=== PATIENT | female | born 1985 | race African-American/Black ===

== ENCOUNTER 2017-01-07 12:32 | Emergency (ER) | payer OTHER, MEDICAID ==
[2017-01-07 13:07] LABS: ABSOLUTE EOSINOPHILS # (AUTO) 0.4 10^3/uL (0.0-0.6); ABSOLUTE LYMPHOCYTES (AUTO) 2.2 10^3/uL (0.5-4.7); ABSOLUTE MONOCYTES (AUTO) 0.3 10^3/uL (0.1-1.4); ABSOLUTE NEUT (AUTO) 3.6 10^3/uL (1.7-8.2); BASOPHILS % (AUTO) 0.2 % (0-2); EOSINOPHILS % (AUTO) 5.4 % (0-6); HEMATOCRIT 37.8 % (36.0-47.0); HEMOGLOBIN 13.1 g/dL (12.0-15.5); HGB HCT DIFFERENCE 1.5; LYMPHOCYTES % (AUTO) 33.3 % (13-45); MEAN CORPUSCULAR HEMOGLOBIN 30.1 pg (27.0-33.4); MEAN CORPUSCULAR HGB CONC 34.7 g/dL (32.0-36.0); MEAN CORPUSCULAR VOLUME 87 fl (80-97); MONOCYTES % (AUTO) 5.3 % (3-13); RED BLOOD COUNT 4.36 10^6/uL (3.72-5.28); RED CELL DISTRIBUTION WIDTH 13.7 % (11.5-14.0); SEGMENTED NEUTROPHILS % (AUTO) 55.8 % (42-78); WHITE BLOOD COUNT 6.5 10^3/uL (4.0-10.5)
[2017-01-07 13:23] LABS: ALANINE AMINOTRANSFERASE 23 U/L (9-52); ALBUMIN 4.4 g/dL (3.5-5.0); ALKALINE PHOSPHATASE 66 U/L (38-126); ANION GAP 9 (5-19); ASPARTATE AMINO TRANSFERASE 22 U/L (14-36); BILIRUBIN,DIRECT 0.4 mg/dL (0.0-0.4); BILIRUBIN,TOTAL 1.3 mg/dL (0.2-1.3); BLOOD UREA NITROGEN 8 mg/dL (7-20); CALCIUM 10.1 mg/dL (8.4-10.2); CARBON DIOXIDE 27 mmol/L (22-30); CHLORIDE 102 mmol/L (98-107); CREATININE RESULT 0.69 mg/dL (0.52-1.25); GLUCOSE 107 mg/dL (75-110); POTASSIUM 3.7 mmol/L (3.6-5.0); SODIUM 138.1 mmol/L (137-145)
--- NOTE | 2017-01-07 14:36 | ER Document Report ---
ED General - General Chief Complaint: Abdominal Cramping Stated Complaint: STOMACH PAIN Time Seen by Provider: 01/07/17 12:47 TRAVEL OUTSIDE OF THE [place] IN LAST 30 DAYS: No - HPI Patient complains to provider of: abdominal cramping and vaginal spotting Notes: Patient's coming in for abdominal cramping vaginal spotting. States last menstrual cycle was in the middle November. Patient is unaware of her status at this time. Patient denies any other medical problems denies any abdominal surgeries. Denies any nausea or vomiting. - Related Data Allergies/Adverse Reactions: No Known Allergies Allergy (Verified 01/07/17 12:44) Past Medical History - Social History Smoking Status: Never Smoker Chew tobacco use (# tins/day): No Frequency of alcohol use: None Drug Abuse: None Family History: COPD, DM, Hyperlipidemia, Hypertension Renal/ Medical History: Denies: Hx Peritoneal Dialysis Musculoskeltal Medical History: Reports Hx Musculoskeletal Trauma Surgical Hx: Negative - Immunizations Hx Diphtheria, Pertussis, Tetanus Vaccination: Yes Review of Systems - Review of Systems Constitutional: No symptoms reported EENT: No symptoms reported Cardiovascular: No symptoms reported Respiratory: No symptoms reported Gastrointestinal: Abdominal pain - Cramping and vaginal spotting Genitourinary: No symptoms reported Female Genitourinary: No symptoms reported Musculoskeletal: No symptoms reported Skin: No symptoms reported Hematologic/Lymphatic: No symptoms reported Neurological/Psychological: No symptoms reported -: Yes All other systems reviewed and negative Physical Exam - Vital signs Vitals: Temp Pulse Resp BP Pulse Ox 98.1 F 92 14 128/68 H 100 01/07/17 12:33 01/07/17 12:33 01/07/17 12:33 01/07/17 12:33 01/07/17 12:33 Interpretation: Normal - General General appearance: Appears well, Alert - HEENT Head: Normocephalic, Atraumatic Eyes: Normal Pupils: PERRL - Respiratory Respiratory status: No respiratory distress Chest status: Nontender Breath sounds: Normal Chest palpation: Normal - Cardiovascular Rhythm: Regular Heart sounds: Normal auscultation Murmur: No - Abdominal Inspection: Normal Distension: No distension Bowel sounds: Normal Tenderness: Nontender Organomegaly: No organomegaly - Back Back: Normal, Nontender - Extremities General upper extremity: Normal inspection, Nontender, Normal color, Normal ROM , Normal temperature General lower extremity: Normal inspection, Nontender, Normal color, Normal ROM , Normal temperature, Normal weight bearing. No: Jackson's sign - Neurological Neuro grossly intact: Yes Cognition: Normal Orientation: AAOx4 [place] Coma Scale Eye Opening: Spontaneous [place] Coma Scale Verbal: Oriented [place] Coma Scale Motor: Obeys Commands Napoleon Coma Scale Total: 15 Speech: Normal Motor strength normal: LUE, RUE, LLE, RLE Sensory: Normal - Psychological Associated symptoms: Normal affect, Normal mood - Skin Skin Temperature: Warm Skin Moisture: Dry Skin Color: Normal Course - Re-evaluation Re-evalutation: 01/07/17 14:34 Patient coming in for vaginal spotting abdominal cramping test was positive. A quantitative pretty test ultrasound was ordered due to spotting. Quantitative shows less than 200. More likely ultrasound will be negative. Patient will be given threatened miscarriage instructions and request to return in 48 hours for repeat beta hCG testing. - Vital Signs Vital signs: Temp Pulse Resp BP Pulse Ox 98.2 F 94 16 126/70 H 100 01/07/17 15:43 01/07/17 15:43 01/07/17 15:43 01/07/17 15:43 01/07/17 15:43 - Laboratory Result Diagrams: 01/07/17 12:54 01/07/17 12:54 Laboratory results interpreted by me: 01/07/17 01/07/17 12:54 12:54 Serum HCG, Qual POSITIVE H Beta HCG, Quant 141.72 H Discharge - Discharge Clinical Impression: Vaginal bleeding in patient at less than 20 weeks gestation Disposition: HOME, SELF-CARE Instructions: ([facility]), Threatened Miscarriage ([facility]), Ectopic Precaution ([facility]) Additional Instructions: Since we cannot see the on the ultrasound, you must return in 48 hours to have your bhcg blood level repeated. Go to the lab, have your blood drawn, wait a few hours and you can call the ER for your results. We should see this number double for a healthy No sex until cleared to do so return right away with vaginal bleeding or severe pain You should continue to drink plenty of water and consider taking a solution such as Pedialyte if your having difficulty eating food.~ Please return if you become unable to drink any fluids for more than 12 hours, urinate less than twice a day, pass out, or have any other symptoms that are concerning to you. ~ For nausea and vomiting during I recomment: Start with 10-12.5 mg of pyridoxine (vitamin B6) three times a day for 2 days. If not fully effective, Increase to 12.5 mg of pyridoxine four times a day for 2 days. If not fully effective, Increase to 25 mg of pyridoxine three times a day for 2 days. If not fully effective, Continue 25 mg pyridoxine 3 times a day, and add 12.5 mg of doxylamine before bedtime each day for 2 days. If not fully effective, Continue 25 mg pyridoxine 3 times a day, and take 12.5 mg of doxylamine twice a day. If not fully effective, Continue 25 mg pyridoxine 3 times a day, and take 12.5 mg of doxylamine three times a day. If not fully effective, Continue 25 mg pyridoxine 3 times a day, and 12.5 mg of doxylamine 3 times a day , while adding Emetrol, one to two tablespoons (15-30 cc) taken once or twice a day as needed. (Emetrol is an [id number] mixture of sugar syrups and phosphoric acid [phosphorylated carbohydrate solution]) that acts by soothing the actual wall of the gastrointestinal tract). If not fully effective, Consult with your doctor. Prescriptions: Pnv with Ca,No.72/Iron/FA [ Plus Tablet] 1 each PO DAILY #30 tablet Forms: Follow-Up Outpatient Testing
[2017-01-07 15:59] VITALS: BP 126/70
== END 2017-01-07 15:48 | disposition home or self-care (01) ==
LOC: ER 12:32
DX: O26.851 Spotting complicating pregnancy, first trimester (principal); O26.891 Other specified pregnancy related conditions, first trimester; R10.9 Unspecified abdominal pain; Z3A.01 Less than 8 weeks gestation of pregnancy
CPT/HCPCS: 36415; 76817; 80053; 83690; 84702; 84703; 85025; 86900; 86901; 93976; 99284

== ENCOUNTER → 2017-01-09 | Outpatient (CLI) | payer OTHER, MEDICAID | LOC: LAB 09:45 | PROVIDERS: ATTEND Emergency Medicine | DX: O46.90 Antepartum hemorrhage, unspecified, unspecified trimester (principal) | CPT/HCPCS: 36415; 84702 ==

== ENCOUNTER 2017-01-15 17:29 | Day surgery (SDC) | payer OTHER, MEDICAID ==
--- NOTE | 2017-01-15 20:31 | ER Document Report ---
ED Medical Screen (RME) - General Chief Complaint: Abdominal pain, vaginal bleeding Stated Complaint: ABDOMINAL CRAMPING,NAUSEA,VAGINAL BLEEDING Time Seen by Provider: 01/15/17 20:28 Notes: Patient is a 31-year-old female, at 5-6 weeks gestation by last menstrual period that comes emergency department for chief complaint of abdominal cramping and yesterday started vaginal bleeding "like a period". Denies clots, denies current pain, denies dizziness. TRAVEL OUTSIDE OF THE [place] IN LAST 30 DAYS: No - Related Data Allergies/Adverse Reactions: No Known Allergies Allergy (Verified 01/07/17 12:44) Past Medical History Renal/ Medical History: Denies: Hx Peritoneal Dialysis Musculoskeltal Medical History: Reports Hx Musculoskeletal Trauma - Immunizations Hx Diphtheria, Pertussis, Tetanus Vaccination: Yes Physical Exam - Vital signs Vitals: Temp Pulse Resp BP Pulse Ox 98.5 F 95 18 120/52 L 100 01/15/17 17:41 01/15/17 17:41 01/15/17 17:41 01/15/17 17:41 01/15/17 17:41 - General General appearance: Appears well In distress: None - Abdominal Inspection: Normal Tenderness: Nontender Course - Vital Signs Vital signs: Temp Pulse Resp BP Pulse Ox 98.5 F 95 18 120/52 L 100 01/15/17 17:41 01/15/17 17:41 01/15/17 17:41 01/15/17 17:41 01/15/17 17:41
[2017-01-15 21:13] LABS: ABSOLUTE EOSINOPHILS # (AUTO) 0.3 10^3/uL (0.0-0.6); ABSOLUTE LYMPHOCYTES (AUTO) 1.7 10^3/uL (0.5-4.7); ABSOLUTE MONOCYTES (AUTO) 0.5 10^3/uL (0.1-1.4); ABSOLUTE NEUT (AUTO) 2.6 10^3/uL (1.7-8.2); BASOPHILS % (AUTO) 0.3 % (0-2); EOSINOPHILS % (AUTO) 5.9 % (0-6); HEMATOCRIT 38.7 % (36.0-47.0); HEMOGLOBIN 13.3 g/dL (12.0-15.5); HGB HCT DIFFERENCE 1.2; LYMPHOCYTES % (AUTO) 33.5 % (13-45); MEAN CORPUSCULAR HEMOGLOBIN 30.3 pg (27.0-33.4); MEAN CORPUSCULAR HGB CONC 34.3 g/dL (32.0-36.0); MEAN CORPUSCULAR VOLUME 88 fl (80-97); MONOCYTES % (AUTO) 10.2 % (3-13); RED BLOOD COUNT 4.38 10^6/uL (3.72-5.28); RED CELL DISTRIBUTION WIDTH 13.3 % (11.5-14.0); SEGMENTED NEUTROPHILS % (AUTO) 50.1 % (42-78); WHITE BLOOD COUNT 5.2 10^3/uL (4.0-10.5)
[2017-01-15 21:16] LABS: APPEARANCE,URINE SLIGHTLY-CLOUDY; BILIRUBIN,URINE NEGATIVE (NEGATIVE); GLUCOSE, URINE NEGATIVE (NEGATIVE); KETONES,URINE TRACE mg/dL (NEGATIVE); LEUKOCYTE ESTERASE,URINE NEGATIVE (NEGATIVE); NITRITE,URINE NEGATIVE (NEGATIVE); PROTEIN,URINE NEGATIVE (NEGATIVE); URINE SPECIFIC GRAVITY 1.026
--- NOTE | 2017-01-15 22:49 | RADIOLOGY REPORT (SQ) ---
EXAM DESCRIPTION: U/S OB TRANSVAG W/DOPPLER COMPLETED DATE/TIME: 01/15/2017 10:27 pm REASON FOR STUDY: +HCG, cramping, bleeding COMPARISON: None. TECHNIQUE: Transvaginal static and realtime grayscale images acquired of the pelvis. Additional olga lidia cted spectral and color Doppler images recorded. All images stored on PACs. bHC,800 LIMITATIONS: None. FINDINGS: UTERUS: No masses. No anomalies. CERVICAL LENGTH: 3 cm Closed. RIGHT ADNEXA: Normal ovary with normal vascular flow. No adnexal free fluid. No adnexal masses. LEFT ADNEXA: Normal ovary with normal vascular flow. No adnexal free fluid. Gestational sac with yolk sac in the left adnexa, likely tubal ectopic , approximately 5 wee ks 2 days EGA. FREE FLUID: Trace endometrial fluid. OTHER: No other significant finding. IMPRESSION: Gestational sac with yolk sac in the left adnexa, likely tubal ectopic , approx imately 5 weeks 2 days EGA. These results were called to the emergency room physician at 2240 hours. Results were confirmed and read back. Trimester of : First - 0 to 13 weeks. TECHNICAL DOCUMENTATION: JOB ID: [id number] [employer]- All Rights Reserved
[2017-01-15] MEDS ORDERED: NORMAL SALINE 1000 ML 1,000 ML IV ONE (23:23)
--- NOTE | 2017-01-15 23:24 | ER Document Report ---
ED GI/ - General Chief Complaint: Abdominal pain, vaginal bleeding Stated Complaint: ABDOMINAL CRAMPING,NAUSEA,VAGINAL BLEEDING Time Seen by Provider: 01/15/17 20:28 Notes: Patient is a 31-year-old female, at 5-6 weeks gestation by last menstrual period that comes emergency department for chief complaint of abdominal cramping and yesterday started vaginal bleeding "like a period". Cramping started almost 1 week ago and has worsened. Pain worse on the left side. Denies clots, denies current pain, denies dizziness. TRAVEL OUTSIDE OF THE [place] IN LAST 30 DAYS: No - Related Data Allergies/Adverse Reactions: No Known Allergies Allergy (Verified 01/07/17 12:44) Past Medical History - General Information source: Patient - Social History Smoking Status: Never Smoker Frequency of alcohol use: None Drug Abuse: None Lives with: Family Family History: COPD, DM, Hyperlipidemia, Hypertension Renal/ Medical History: Denies: Hx Peritoneal Dialysis Musculoskeltal Medical History: Reports Hx Musculoskeletal Trauma Surgical Hx: Negative - Immunizations Hx Diphtheria, Pertussis, Tetanus Vaccination: Yes Review of Systems - Review of Systems Constitutional: No symptoms reported EENT: No symptoms reported Cardiovascular: No symptoms reported Respiratory: No symptoms reported Gastrointestinal: See HPI Genitourinary: See HPI Female Genitourinary: See HPI Musculoskeletal: No symptoms reported Skin: No symptoms reported Hematologic/Lymphatic: No symptoms reported Neurological/Psychological: No symptoms reported Physical Exam - Vital signs Vitals: Temp Pulse Resp BP Pulse Ox 98.5 F 95 18 120/52 L 100 01/15/17 17:41 01/15/17 17:41 01/15/17 17:41 01/15/17 17:41 01/15/17 17:41 Interpretation: Normal - General General appearance: Appears well, Alert In distress: None - patient does not appear to be in distress - HEENT Head: Normocephalic, Atraumatic Eyes: Normal Pupils: PERRL - Respiratory Respiratory status: No respiratory distress Chest status: Nontender Breath sounds: Normal. No: Decreased air movement, Wheezing Chest palpation: Normal - Cardiovascular Rhythm: Regular. No: Tachycardia Heart sounds: Normal auscultation, S1 appreciated, S2 appreciated Murmur: No - Abdominal Inspection: Normal Distension: No distension Bowel sounds: Normal Tenderness: Tender - tender with some guarding in the left lower abdomen/pelvis , otherwise benign abdomen Organomegaly: No organomegaly - Back Back: Normal, Nontender. No: Tender, CVA tenderness - Extremities General upper extremity: Normal inspection, Nontender, Normal ROM, Normal strength General lower extremity: Normal inspection, Nontender, Normal ROM, Normal strength - Neurological Neuro grossly intact: Yes Cognition: Normal Orientation: AAOx4 [place] Coma Scale Eye Opening: Spontaneous Michelle Coma Scale Verbal: Oriented [place] Coma Scale Motor: Obeys Commands [place] Coma Scale Total: 15 Speech: Normal Motor strength normal: LUE, RUE, LLE, RLE Sensory: Normal - Psychological Associated symptoms: Normal affect, Normal mood - Skin Skin Temperature: Warm Skin Moisture: Dry Skin Color: Normal Course - Re-evaluation Re-evalutation: CBC is unremarkable, urinalysis unremarkable, hCG is only very slightly elevated and potentially concerning. Dr. Cosby informs me that radiologist called and had a report of a left- sided suspected ectopic tubal . Report reviewed. 01/15/17 23:24 Spoke with LUIS CARLOS Amaro national account manager, he states he will see the patient. Saline lock placed, IV fluids given. Patient n.p.o. Patient will be taken to surgery. Patient stating understanding and agreement. - Vital Signs Vital signs: Temp Pulse Resp BP Pulse Ox 97.5 F 70 16 121/68 100 01/16/17 02:27 01/16/17 02:27 01/16/17 02:27 01/16/17 02:27 01/16/17 02:27 - Laboratory Result Diagrams: 01/15/17 20:30 Laboratory results interpreted by me: 01/15/17 01/15/17 20:30 20:35 Beta HCG, Quant 1872.30 H Urine Ketones TRACE H Urine Blood MODERATE H Urine Urobilinogen 4.0 H Discharge - Discharge Clinical Impression: Pelvic pain, Vaginal bleeding Ectopic Qualifiers: Location of ectopic : tubal Intrauterine status: without intrauterine Qualified Code(s): O00.10 - Tubal without intrauterine Condition: Stable Disposition: ADMITTED OBSERVATION Admitting Provider: [facility] Health Unit Admitted: Surgical Floor
[2017-01-15] MEDS ORDERED: RINGERS SOLUTION,LACTATED 1,000 ML IV PRN (23:34)
[2017-01-16] MEDS ORDERED: METOCLOPRAMIDE HCL INJ/PF 10 MG/2 ML SDV ONE (00:33)
[2017-01-16] MEDS ORDERED: FAMOTIDINE INJ/PF 20 MG/2 ML SDV IV ONE (00:34)
[2017-01-16] MEDS ORDERED: CITRIC ACID/SODIUM CITRATE ORAL SOLN 15 ML UDCUP ONE (00:34)
[2017-01-16] MEDS ORDERED: FENTANYL CITRATE INJ/PF 100 MCG/2 ML AMPUL ONE ×2 (00:45)
[2017-01-16] MEDS ORDERED: MIDAZOLAM 2 MG/2 ML INJ ONE (00:45)
[2017-01-16] MEDS ORDERED: HYDROMORPHONE HCL INJ/PF 2 MG/ML AMPULE ONE (00:45)
[2017-01-16] MEDS ORDERED: ONDANSETRON HCL INJ/PF 4 MG/2 ML SDV ONE (00:45)
[2017-01-16] MEDS ORDERED: PROPOFOL INJ 200 MG/20 ML VIAL IV ONE (00:45)
[2017-01-16] MEDS ORDERED: DEXAMETHASONE SOD PHOSPHATE INJ 4 MG/1 ML VIAL ONE (00:45)
[2017-01-16] MEDS ORDERED: IBUPROFEN INJ 800 MG/8 ML VIAL IV ONE (00:46)
[2017-01-16] MEDS ORDERED: ACETAMINOPHEN 100 ML IV ONE ×2 (02:10→03:15)
[2017-01-16 02:48] VITALS: BP 121/68
[2017-01-16] MEDS ORDERED: ROCURONIUM BROMIDE INJ 50 MG/5 ML VIAL IV ONE (07:50)
[2017-01-16] MEDS ORDERED: SUCCINYLCHOLINE CHLORIDE INJ 200 MG/10 ML VIAL ONE (07:50)
[2017-01-16] MEDS ORDERED: NEOSTIGMINE METHYLSULFATE 10 MG/10 ML VIAL ONE (07:50)
[2017-01-16] MEDS ORDERED: GLYCOPYRROLATE INJ 0.4 MG/2 ML VIAL ONE (07:50)
--- NOTE | 2017-02-27 11:59 | DISCHARGE SUMMARY E ---
Discharge Summary NAME: ОЛЕГ HYDE : 1985 AGE: 31Y ADMITTED: 01/15/2017 DISCHARGED: 01/16/2017 REASON FOR ADMISSION: Left ectopic . FINAL DIAGNOSIS REQUIRING ADMISSION: Left ectopic . HISTORY AND PHYSICAL: See history and physical from January 15, 2017, for full details. HOSPITAL COURSE: The patient is admitted through the emergency room for her left ectopic . She goes to the operating room for a left salpingectomy. It is an uncomplicated procedure. See operative note for full details. She is transferred to the women's surgical floor for her outpatient surgical care. Approximately 2 hours after the surgery, she is meeting all of the outpatient surgical goals in order to be discharged home; therefore, she is discharged home. DISCHARGE INSTRUCTIONS: Discharge the patient home. DIET: Regular. LEVEL OF ACTIVITY: Pelvic rest x2 weeks; no heavy lifting x6 weeks. FOLLOWUP INTERVAL: One week with Dr. Costa. SPECIAL INSTRUCTIONS: The patient is instructed to call MD if temperature greater than 100.5, heavy vaginal bleeding or signs and symptoms of wound infection. MEDICATIONS ON DISCHARGE: Percocet and Motrin. DICTATING PHYSICIAN: Niles Costa DO [id number] PHY#: [id number] ID: [id number] JOB#: [id number] ACCT: [id number] cc:Niles Costa D.O. >
== END 2017-01-16 03:52 | disposition home or self-care (01) ==
LOC: ER 17:29 → UNDOADMOB 01-16 00:04 → EH 01-16 00:04 → OROUT 01-16 01:45 → ER 01-16 01:45 → EH 01-16 02:31 → 2N 01-16 02:31 → UNDODISOB 01-16 03:52 → OROUT 01-16 03:52
PROVIDERS: ATTEND Obstetrics & Gynecology
PROC: 0UT64ZZ Resection of Left Fallopian Tube, Percutaneous Endoscopic Approach (ICD-10-PCS; 2017-01-16)
PROC: 10T24ZZ Resection of Products of Conception, Ectopic, Percutaneous Endoscopic Approach (ICD-10-PCS; principal; 2017-01-16 01:10)
DX: O00.10 Tubal pregnancy without intrauterine pregnancy (principal)
CPT/HCPCS: 59151; 99285; 86900; 86901; 36415; 84702; 85025; 81001; 88305 ×2; 76817; 93976; J2250; J3490 ×2; J1100; J3010; J2765; J0330; J2405; J7120; J2704; S0028; J0131; J1741; 840; J1170

== ENCOUNTER 2017-11-07 08:15 | Emergency (ER) | payer MEDICAID ==
[2017-11-07 09:35] LABS: APPEARANCE,URINE CLOUDY; BILIRUBIN,URINE NEGATIVE (NEGATIVE); COLOR,URINE YELLOW; GLUCOSE, URINE NEGATIVE (NEGATIVE); KETONES,URINE NEGATIVE (NEGATIVE); LEUKOCYTE ESTERASE,URINE LARGE (NEGATIVE); NITRITE,URINE NEGATIVE (NEGATIVE); PROTEIN,URINE 30 mg/dL (NEGATIVE); URINE SPECIFIC GRAVITY 1.027; UROBILINOGEN,URINE NEGATIVE mg/dL (<2.0)
--- NOTE | 2017-11-07 11:16 | RADIOLOGY REPORT (SQ) ---
EXAM DESCRIPTION: U/S OB TRANSVAGINAL W/O DOP COMPLETED DATE/TIME: 11/07/2017 11:05 am REASON FOR STUDY: +, Right pelvic pain, spotting COMPARISON: None. TECHNIQUE: Transvaginal static and realtime grayscale images acquired of the pelvis. Additional olga lidia cted spectral and color Doppler images recorded. All images stored on PACs. bHCG: Not available. LIMITATIONS: None. FINDINGS: There is an early gestational sac measuring 9 mm suggesting a gestational 5 weeks 5 days. The pole is not evident. There is no heart motion. A yolk sac is present. UTERUS: 10.5 x 5.5 x 5.7 cm. No masses. No anomalies. CERVICAL LENGTH: 3.4 cm. Closed. RIGHT ADNEXA: Normal ovary with normal vascular flow. 3.6 x 2.6 x 2.3 cm. There is a 1.7 x 1.7 x 1. 1 cm cyst. No adnexal free fluid. No adnexal masses. LEFT ADNEXA: Normal ovary with normal vascular flow. 2.6 x 2.3 x 1.2 cm. No adnexal free fluid. No adnexal masses. FREE FLUID: None. OTHER: There is a small subchorionic bleed measuring 0.8 x 1.2 x 0.7 cm. IMPRESSION: There is a gestational sac suggesting early gestation of 5 weeks 5 days. There is a sma ll subchorionic bleed. Follow-up as clinically indicated. Trimester of : First - 0 to 13 weeks. TECHNICAL DOCUMENTATION: JOB ID: [id number] [employer]- All Rights Reserved Reading location - IP/workstation name: [email or web address]
--- NOTE | 2017-11-07 11:25 | ER Document Report ---
ED General - General Chief Complaint: Lower Abdominal Pain Stated Complaint: VAGINAL SPOTTING/CRAMPING Time Seen by Provider: 11/07/17 09:16 Mode of Arrival: Ambulatory Information source: Patient Notes: 32-year-old female 5 para 4 1 previous ectopic presents with complaints of vaginal bleeding during . Patient notes she is approximate 5 weeks . She denies any fevers or chills, blood type is B + and she has never received RhoGam in the past TRAVEL OUTSIDE OF THE [place] IN LAST 30 DAYS: No - HPI Onset: Just prior to arrival Onset/Duration: Sudden Quality of pain: No pain Severity: Mild Pain Level: Denies Associated symptoms: Other Exacerbated by: Denies Relieved by: Denies Similar symptoms previously: Yes Recently seen / treated by doctor: Yes - Related Data Allergies/Adverse Reactions: No Known Allergies Allergy (Verified 01/07/17 12:44) Past Medical History - Social History Smoking Status: Never Smoker Cigarette use (# per day): No Chew tobacco use (# tins/day): No Smoking Education Provided: No Frequency of alcohol use: None Drug Abuse: None Family History: COPD, DM, Hyperlipidemia, Hypertension Patient has suicidal ideation: No Patient has homicidal ideation: No - Past Medical History Cardiac Medical History: Denies: Hx Congestive Heart Failure, Hx Heart Attack, Hx Hypertension Pulmonary Medical History: Denies: Hx Asthma, Hx Bronchitis, Hx COPD, Hx Pneumonia, Hx Tuberculosis Neurological Medical History: Denies: Hx Seizures Renal/ Medical History: Denies: Hx End Stage Renal Disease, Hx Kidney Stones, Hx Peritoneal Dialysis GI Medical History: Denies: Hx Cirrhosis, Hx Gastroesophageal Reflux Disease, Hx Ulcer Musculoskeltal Medical History: Denies Hx Arthritis, Denies Hx Multiple Sclerosis, Reports Hx Musculoskeletal Trauma Psychiatric Medical History: Denies: Hx Bipolar Disorder, Hx Depression, Hx Schizophrenia Past Surgical History: Reports: Hx Gynecologic Surgery - left tubal removal - Immunizations Hx Diphtheria, Pertussis, Tetanus Vaccination: Yes Review of Systems - Review of Systems Notes: REVIEW OF SYSTEMS: CONSTITUTIONAL : Denies fever, chills, or sweats. Denies recent illness. EENT: Denies eye, ear, throat, or mouth pain or symptoms. Denies nasal or sinus congestion or discharge. Denies throat, tongue, or mouth swelling or difficulty swallowing. CARDIOVASCULAR: Denies chest pain. Denies palpitations or racing or irregular heart beat. Denies ankle edema. RESPIRATORY: Denies cough, cold, or chest congestion. Denies shortness of breath, difficulty breathing, or wheezing. GASTROINTESTINAL: Denies abdominal pain or distention. Denies nausea, vomiting , or diarrhea. Denies blood in vomitus, stools, or per rectum. Denies black, tarry stools. Denies constipation. GENITOURINARY: Denies difficulty urinating, painful urination, burning, frequency, blood in urine, or discharge. FEMALE GENITOURINARY: [facility]. MUSCULOSKELETAL: Denies back or neck pain or stiffness. Denies joint pain or swelling. SKIN: Denies rash, lesions or sores. HEMATOLOGIC : Denies easy bruising or bleeding. LYMPHATIC: Denies swollen, enlarged glands. NEUROLOGICAL: Denies confusion or altered mental status. Denies passing out or loss of consciousness. Denies dizziness or lightheadedness. Denies headache. Denies weakness or paralysis or loss of use of either side. Denies problems with gait or speech. Denies sensory loss, numbness, or tingling. Denies seizures. PSYCHIATRIC: Denies anxiety or stress. Denies depression, suicidal ideation, or homicidal ideation. ALL OTHER SYSTEMS REVIEWED AND NEGATIVE. PHYSICAL EXAMINATION: GENERAL: Well-appearing, well-nourished and in no acute distress. HEAD: Atraumatic, normocephalic. EYES: Pupils equal round and reactive to light, extraocular movements intact, conjunctiva are normal. ENT: Nares patent, oropharynx clear without exudates. Moist mucous membranes. NECK: Normal range of motion, supple without lymphadenopathy LUNGS: Breath sounds clear to auscultation bilaterally and equal. No wheezes rales or rhonchi. HEART: Regular rate and rhythm without murmurs ABDOMEN: Soft, nontender, nondistended abdomen. No guarding, no rebound. No masses appreciated. Female : deferred Musculoskeletal: Normal range of motion, no pitting or edema. No cyanosis. NEUROLOGICAL: Cranial nerves grossly intact. Normal speech, normal gait. Normal sensory, motor exams PSYCH: Normal mood, normal affect. SKIN: Warm, Dry, normal turgor, no rashes or lesions noted. Dictation was performed using [employer] recognition software Course - Re-evaluation Re-evalutation: 11/07/17 11:25 Patient was evaluated and is stable, physical examination was quite benign patient is eating in the room with no difficulty, patient's ultrasound is consistent with a 5 week 5 day , report was given to the patient, she will be given follow-up with women's health as well as the health department patient states she understands will return if there are any other concerns Discussions regarding threatened miscarriage performed After performing a Medical Screening Examination, I estimate there is LOW risk for ACUTE APPENDICITIS, BOWEL OBSTRUCTION, ACUTE CHOLECYSTITIS, PERFORATED DIVERTICULITIS, INCARCERATED HERNIA, PANCREATITIS, PELVIC INFLAMMATORY DISEASE, PERFORATED ULCER, ECTOPIC , or TUBO-OVARIAN ABSCESS, thus I consider the discharge disposition reasonable. Also, there is no evidence or peritonitis , sepsis, or toxicity. I have reevaluated this patient multiple times and no significant life threatening changes are noted. The patient and I have discussed the diagnosis and risks, and we agree with discharging home with close follow-up with the understanding that symptoms and presentations can change. We also discussed returning to the Emergency Department immediately if new or worsening symptoms occur. We have discussed the symptoms which are most concerning (e.g., bloody stool, fever, changing or worsening pain, vomiting) that necessitate immediate return. - Laboratory Laboratory results interpreted by me: 11/07/17 11/07/17 08:50 09:48 Beta HCG, Quant 00608.00 H Urine Protein 30 H Urine Blood SMALL H Ur Leukocyte Esterase LARGE H Urine HCG, Qual POSITIVE H - Diagnostic Test Radiology reviewed: Image reviewed - no acute abnormality except for small subchorionic bleed, 5 week 5 day , report given to patient, Reports reviewed Discharge - Discharge Clinical Impression: Threatened miscarriage in early Condition: Stable Disposition: HOME, SELF-CARE Instructions: Threatened Miscarriage ([facility]) Additional Instructions: Follow up with your physician tomorrow for further care or return to the ED IMMEDIATELY if symptoms worsen or new concerns occur. If you cannot afford to follow up with your primary care physician a list of low cost clinics have been provided at the end of your discharge papers as well.
[2017-11-07 11:42] VITALS: BP 120/61
== END 2017-11-07 11:42 | disposition home or self-care (01) ==
LOC: ER 08:15
DX: O20.0 Threatened abortion (principal); Z3A.01 Less than 8 weeks gestation of pregnancy
CPT/HCPCS: 36415; 76817; 81001; 81025; 84702; 99284

== ENCOUNTER 2018-06-02 09:49 | Outpatient (CLI) | payer MEDICAID ==
[2018-06-02 10:54] LABS: APPEARANCE,URINE SLIGHTLY-CLOUDY; BILIRUBIN,URINE NEGATIVE (NEGATIVE); COLOR,URINE YELLOW; GLUCOSE, URINE NEGATIVE (NEGATIVE); KETONES,URINE NEGATIVE (NEGATIVE); LEUKOCYTE ESTERASE,URINE LARGE (NEGATIVE); NITRITE,URINE NEGATIVE (NEGATIVE); PROTEIN,URINE 30 mg/dL (NEGATIVE); URINE SPECIFIC GRAVITY 1.016; UROBILINOGEN,URINE NEGATIVE mg/dL (<2.0)
[2018-06-02 11:06] LABS: URINE AMPHETAMINES SCREEN NEGATIVE; URINE BARBITURATES SCREEN NEGATIVE; URINE BENZODIAZEPINES SCREEN NEGATIVE; URINE COCAINE SCREEN NEGATIVE; URINE METHADONE SCREEN NEGATIVE; URINE PHENCYCLIDINE SCREEN NEGATIVE
[2018-06-02 11:12] LABS: URINE MARIJUANA (THC) SCREEN UNCONFIRMED POSITIVE
--- NOTE | 2018-06-02 12:06 | Non Stress Test Report ---
Non Stress Test Datetime Report Generated by CPN: 06/02/2018 12:05 DEMOGRAPHIC EGA NST: 35.1 INDICATION Indication for Study: Ordered by Provider MONITORING Monitor Explained: Monitor Explained; Test Explained; Patient Verbalized Understanding Time on Monitor: 06/02/2018 10:20 Time off Monitor: 06/02/2018 11:25 Time off Monitor: 06/02/2018 11:25 NST Duration: 65 NST INTERVENTIONS NST Interventions: PO Hydration; Reposition Patient Physician Notified NST: Dr. Fercho BABY A: [id number] BABY A Movement : Present Contraction Frequency : irregular FHR Baseline : 125 FHR Baseline : 135 Accelerations : 15X15 Decelerations : None Variability : Moderate 6-25bpm NST Review: Meets Criteria for Reactive NST NST Review and Verified By : Kai Macdonald RN NST Results: Reactive NST REPORT Report Trigger: Send Report
== END 2018-06-02 11:46 | disposition home or self-care (01) ==
LOC: LC 09:49
PROVIDERS: ATTEND Obstetrics & Gynecology
PROC: 4A1HXCZ Monitoring of Products of Conception, Cardiac Rate, External Approach (ICD-10-PCS; principal; 2018-06-02)
DX: O47.03 False labor before 37 completed weeks of gestation, third trimester (principal); Z3A.35 35 weeks gestation of pregnancy
CPT/HCPCS: 59025; 80307; 81001

== ENCOUNTER 2018-07-04 11:12 | Outpatient (CLI) | payer MEDICAID ==
[2018-07-04 11:54] LABS: APPEARANCE,URINE SLIGHTLY-CLOUDY; BILIRUBIN,URINE SMALL (NEGATIVE); COLOR,URINE AMBER; GLUCOSE, URINE NEGATIVE (NEGATIVE); KETONES,URINE NEGATIVE (NEGATIVE); LEUKOCYTE ESTERASE,URINE NEGATIVE (NEGATIVE); NITRITE,URINE NEGATIVE (NEGATIVE); PROTEIN,URINE 100 mg/dL (NEGATIVE); URINE SPECIFIC GRAVITY 1.028
[2018-07-04 12:20] LABS: URINE AMPHETAMINES SCREEN NEGATIVE; URINE BARBITURATES SCREEN NEGATIVE; URINE BENZODIAZEPINES SCREEN NEGATIVE; URINE COCAINE SCREEN NEGATIVE; URINE MARIJUANA (THC) SCREEN NEGATIVE; URINE METHADONE SCREEN NEGATIVE; URINE PHENCYCLIDINE SCREEN NEGATIVE
--- NOTE | 2018-07-04 12:28 | Non Stress Test Report ---
Non Stress Test Datetime Report Generated by CPN: 07/04/2018 12:28 DEMOGRAPHIC EGA NST: 39.5 INDICATION Indication for Study: Ordered by Provider MONITORING Monitor Explained: Monitor Explained; Test Explained; Patient Verbalized Understanding Time on Monitor: 07/04/2018 11:29 Time off Monitor: 07/04/2018 12:17 NST Duration: 48 NST INTERVENTIONS NST Interventions: PO Hydration; Reposition Patient Physician Notified NST: Dr. Jones BABY A: [id number] BABY A Movement : Present Contraction Frequency : x2 FHR Baseline : 130 Accelerations : 15X15 Decelerations : None Variability : Moderate 6-25bpm NST Review: Meets Criteria for Reactive NST NST Review and Verified By : NATALYA Laguerre Results: Reactive NST REPORT Report Trigger: Send Report
== END 2018-07-04 12:28 | disposition home or self-care (01) ==
LOC: LC 11:12
PROVIDERS: ATTEND Obstetrics & Gynecology Gynecology
PROC: 4A1HXCZ Monitoring of Products of Conception, Cardiac Rate, External Approach (ICD-10-PCS; principal; 2018-07-04)
DX: O47.1 False labor at or after 37 completed weeks of gestation (principal); Z3A.39 39 weeks gestation of pregnancy
CPT/HCPCS: 59025; 80307; 81005

== ENCOUNTER 2018-07-08 21:45 | Inpatient (IN) | payer MEDICAID ==
--- NOTE | 2018-07-08 21:50 | Admission Physical ---
Datetime Report Generated by CPN: 07/08/2018 21:49 CURRENT ADMISSION Chief Complaint: Scheduled Induction of Labor Indication for Induction: Gestational HTN Admit Impression : Term, Intrauterine ; Intact Membranes; Induction of Labor Admit Plan: Admit to Unit ALLERGIES Medication Allergies: No Medication Allergies: No Known Allergies (01/07/2017) Latex: No Latex Allergies OBSTETRICAL HISTORY EDC: 07/06/2018 00:00 : 5 Para: 3 Term: 3 : 0 SAB: 0 IAB: 0 Ectopic: 1 Livin Cesareans: 0 VBACs: 0 Multiple Births: 1 Gestational Diabetes: No Rh Sensitization: No Incompetent Cervix: No YAMILE: No Infertility: No ART Treatment: No Uterine Anomaly: No IUGR: No Hx Previous C/S: No Macrosomia: No Hx Loss/Stillborn: No PIH: No Hx : No Placenta Previa/Abruption: No Depression/PP Depression: No PTL/PROM: No Post Hemorrhage: No Current Procedures: Ultrasound Obstetrical History Comments: G1 - 2007, , 40.3 G2 - 2009, , 40 G3 - 2011, , Twins, 38.3 G4 - 2016, etopic G5 - Current SEE RECORDS Alcohol: No Marijuana : No Cocaine: No Other Illicit Drugs: No Cigarettes: Never Smoker. [id number] MEDICAL HISTORY Diabetes: No Blood Transfusion: No Pulmonary Disease (Asthma, TB): No Breast Disease: No Hypertension: No Punch Operator Surgery: No Heart Disease: No Hosp/Surgery: Yes Autoimmune Disorder: No Anesthetic Complications: No Kidney Disease: No Abnormal Pap Smear: No Neuro/Epilepsy: No Psychiatric Disorders: No Other Medical Diseases: No Hepatitis/Liver Disease: No Significant Family History: No Varicosities/Phlebitis: No Trauma/Violence : No Thyroid Dysfunction: No Medical History Comments: 2017 - etopic and left tube removed; childbirth INFECTIOUS HISTORY Gonorrhea: Yes Genital Herpes: No Chlamydia: Yes Tuberculosis: No Syphilis: No Hepatitis: No HIV/AIDS Exposure: No Rash or Viral Illness: No HPV: No Infectious History Comments: Chlamydia-2011 and 05/2018 (treated, needs JOSEFA); Gonorrhea-2011 PHYSICAL EXAM General: Normal HEENT: Normal Neurologic: Normal Thyroid: Normal Heart: Normal Lungs: Normal Breast: Deferred Back: Normal Abdomen: Normal Genitourinary Exam: Normal Extremities: Normal DTRs: Normal Pelvic Type: Adequate Vital Signs: Reviewed VAGINAL EXAM Dilatation: 1 Effacement: 0 Station: -3 MEMBRANES Pooling: Negative Membranes: Intact FETUS A EGA: 40.2 Monitoring: External US FHR- Baseline: 140 Variability: Moderate 6-25bpm Decelerations: None FHR Category: Category I Presentation: Vertex Admit Comment: admit for induction PLANS FOR LABOR AND DELIVERY Labor and Delivery: None Pain Management: Epidural Feeding Preference: Breast Benefit of Breast Feed Discussed: Yes Circumcision: Yes INFORMED CONSENT Signature: with User ID: [email or web address]
[2018-07-08] MEDS ORDERED: RINGERS SOLUTION,LACTATED 300 ML IV ONE (22:26)
[2018-07-08] MEDS ORDERED: DINOPROSTONE 10 MG VAGINAL INSERT.SR PV PRN (22:26)
[2018-07-08] MEDS ORDERED: MAG HYDROX/AL HYDROX/SIMETH SUSP 30 ML UDCUP PO PRN (22:36)
[2018-07-08] MEDS ORDERED: ACETAMINOPHEN 325 MG TABLET PO PRN (22:36)
[2018-07-08] MEDS ORDERED: ZOLPIDEM TARTRATE 5 MG TABLET PO ONE (22:45)
[2018-07-08 22:58] LABS: APPEARANCE,URINE CLEAR; BILIRUBIN,URINE NEGATIVE (NEGATIVE); COLOR,URINE STRAW; GLUCOSE, URINE NEGATIVE (NEGATIVE); KETONES,URINE NEGATIVE (NEGATIVE); LEUKOCYTE ESTERASE,URINE NEGATIVE (NEGATIVE); NITRITE,URINE NEGATIVE (NEGATIVE); PROTEIN,URINE 100 mg/dL (NEGATIVE); URINE SPECIFIC GRAVITY 1.006; UROBILINOGEN,URINE NEGATIVE mg/dL (<2.0)
[2018-07-08 22:59] LABS: ABSOLUTE EOSINOPHILS # (AUTO) 0.1 10^3/uL (0.0-0.6); ABSOLUTE LYMPHOCYTES (AUTO) 2.1 10^3/uL (0.5-4.7); ABSOLUTE MONOCYTES (AUTO) 0.5 10^3/uL (0.1-1.4); BASOPHILS % (AUTO) 0.2 % (0-2); EOSINOPHILS % (AUTO) 1.2 % (0-6); HEMATOCRIT 28.9 % (36.0-47.0); HEMOGLOBIN 9.4 g/dL (12.0-15.5); LYMPHOCYTES % (AUTO) 31.1 % (13-45); MEAN CORPUSCULAR HEMOGLOBIN 24.1 pg (27.0-33.4); MEAN CORPUSCULAR HGB CONC 32.7 g/dL (32.0-36.0); MEAN CORPUSCULAR VOLUME 74 fl (80-97); MONOCYTES % (AUTO) 7.1 % (3-13); PLATELET COUNT 208 10^3/uL (150-450); RED BLOOD COUNT 3.92 10^6/uL (3.72-5.28); RED CELL DISTRIBUTION WIDTH 18.3 % (11.5-14.0); SEGMENTED NEUTROPHILS % (AUTO) 60.4 % (42-78); TOTAL CELLS COUNTED % (AUTO) 100 %; WHITE BLOOD COUNT 6.6 10^3/uL (4.0-10.5)
[2018-07-08] MEDS: RINGERS SOLUTION,LACTATED 1,000 ML IV PRN (23:10)
[2018-07-08 23:13] LABS: URINE AMPHETAMINES SCREEN NEGATIVE; URINE BARBITURATES SCREEN NEGATIVE; URINE BENZODIAZEPINES SCREEN NEGATIVE; URINE COCAINE SCREEN NEGATIVE; URINE MARIJUANA (THC) SCREEN NEGATIVE; URINE METHADONE SCREEN NEGATIVE; URINE PHENCYCLIDINE SCREEN NEGATIVE
[2018-07-08] MEDS ORDERED: DINOPROSTONE 10 MG VAGINAL INSERT.SR ONE (23:21)
[2018-07-09] MEDS ORDERED: HYDRALAZINE HCL INJ/PF 20 MG/1 ML SDV ONE ×4 (00:22→19:04)
[2018-07-09] MEDS ORDERED: HYDRALAZINE HCL INJ/PF 20 MG/1 ML SDV IV ONE ×3 (00:39→19:12)
[2018-07-09] MEDS ORDERED: PENICILLIN G-K 5 MILLION UNIT VIAL ONE ×3 (02:01→09:52)
[2018-07-09] MEDS ORDERED: LIDOCAINE 1% INJ-PF (10 MG/ML) 30 ML SDV ONE (05:44)
[2018-07-09] MEDS ORDERED: MISOPROSTOL 0.2 MG TABLET ONE (05:44)
[2018-07-09] MEDS ORDERED: OXYTOCIN 10 UNIT/ML VIAL ONE (05:44)
[2018-07-09] MEDS ORDERED: OXYTOCIN/NORMAL SALINE 20 UNIT/1,000 ML RTUINJ ONE (05:44)
[2018-07-09] MEDS: PENICILLIN G-K 5 MILLION UNIT VIAL IV SCH ×3 (06:01→18:18)
[2018-07-09] MEDS: RINGERS SOLUTION,LACTATED 1,000 ML IV PRN ×3 (06:47→12:37)
[2018-07-09] MEDS ORDERED: PHENYLEPHRINE HCL INJ/PF 10 MG/1 ML SDV ONE (08:53)
[2018-07-09] MEDS ORDERED: EPHEDRINE SULFATE INJ 50 MG/1 ML AMPULE ONE (08:53)
[2018-07-09] MEDS ORDERED: BUPIVACAINE HCL 0.5 % INJ/PF 30 ML SDV ONE (08:54)
[2018-07-09] MEDS ORDERED: FENTANYL/BUPIVACAINE/NS/PF 300 MCG/150 ML RTUINJ EPI ONE (08:54)
[2018-07-09] MEDS ORDERED: FENTANYL CITRATE INJ/PF 100 MCG/2 ML AMPUL ONE (09:09)
[2018-07-09] MEDS ORDERED: OXYTOCIN/NORMAL SALINE 20 UNIT/1,000 ML RTUINJ IV PRN ×2 (10:31→13:36)
[2018-07-09] MEDS: HYDRALAZINE HCL INJ/PF 20 MG/1 ML SDV IV PRN ×3 (11:09→19:14)
[2018-07-09] MEDS ORDERED: ACETAMINOPHEN WITH CODEINE #3 TABLET PO PRN ×2 (13:36)
[2018-07-09] MEDS ORDERED: PROMETHAZINE HCL 25 MG TABLET PO PRN (13:36)
[2018-07-09] MEDS ORDERED: DIPH/PERTUSS(ACELL)/TETANUS VAC/PF 0.5 ML SYR (>=10YO) IM PRN (13:36)
[2018-07-09] MEDS ORDERED: BENZOCAINE/MENTHOL AEROSOL SPRAY 56 ML TOP PRN (13:36)
[2018-07-09] MEDS ORDERED: NA PHOS,M-B/NA PHOS,DI-BA (ADULT) 133 ML ENEMA PR PRN (13:36)
[2018-07-09] MEDS ORDERED: MAGNESIUM HYDROXIDE SUSP 30 ML UDCUP PO PRN (13:36)
[2018-07-09] MEDS ORDERED: DIPHENHYDRAMINE HCL 25 MG CAPSULE PO PRN (13:36)
[2018-07-09] MEDS ORDERED: DIBUCAINE 1% OINTMENT 28 GM TP PRN (13:36)
[2018-07-09] MEDS ORDERED: PSEUDOEPHEDRINE HCL 30 MG TABLET PO PRN (13:36)
[2018-07-09] MEDS ORDERED: ACETAMINOPHEN 650 MG SUPP.RECT PR PRN (13:36)
[2018-07-09] MEDS ORDERED: GLYCERIN/WITCH HAZEL LEAF 1 EACH MED..PAD TP PRN (13:36)
[2018-07-09] MEDS ORDERED: MEASLES,MUMPS&RUBELLA VACC/PF 0.5 ML VIAL SUBCUT PRN (13:36)
[2018-07-09] MEDS ORDERED: PROMETHAZINE HCL INJ 25 MG/1 ML VIAL IV PRN (13:36)
[2018-07-09] MEDS ORDERED: ZOLPIDEM TARTRATE 5 MG TABLET PO PRN (13:36)
[2018-07-09] MEDS ORDERED: PROMETHAZINE HCL 25 MG SUPP.RECT PR PRN (13:36)
[2018-07-09] MEDS ORDERED: MAGNESIUM SULFATE 4 GM/100 ML RTUPB IV ONE ×2 (13:41→14:03)
[2018-07-09] MEDS ORDERED: MAGNESIUM SULFATE 20 GM/500 ML RTUINJ IV PRN (13:46)
[2018-07-09] MEDS ORDERED: MISOPROSTOL 0.2 MG TABLET PR ONE (14:00)
[2018-07-09] MEDS ORDERED: MAGNESIUM SULFATE 20 GM/500 ML RTUINJ IV ONE (14:03)
[2018-07-09] MEDS ORDERED: AMPICILLIN SOD/SULBACTAM 3 GM VIAL IV ONE (14:47)
[2018-07-09] MEDS ORDERED: ACETAMINOPHEN 325 MG TABLET PO ONE (14:47)
[2018-07-09] MEDS ORDERED: ACETAMINOPHEN 325 MG TABLET ONE (14:49)
[2018-07-09] MEDS ORDERED: AMPICILLIN SOD/SULBACTAM 3 GM VIAL ONE (14:49)
--- NOTE | 2018-07-09 15:28 | Delivery Summary ---
Del Sum A-C Datetime Report Generated by CPN: 07/09/2018 15:28 DELIVERY PERSONNEL DELIVERY PERSONNEL: [id number] Delivery Doctor:: Melita Borges CNM Labor and Delivery Nurse:: Alee Brantley RNsenior support analyst Nurse:: Amy Banerjee RN Student Observers:: Beulah Chen MATERNAL INFORMATION Delivery Anesthesia: Epidural Medications After Delivery: Pitocin Bolus-Please Comment Meds After Delivery Comment: Pitocin 20 units in 1 L NS bolusing per order Maternal Complications: None Provider Comments: SUSHIL VIABLE MALE, LOOSE NUCHAL CORD X1 REDUCED AFTER DELIVERY OF HEAD. CORD DOUBLE CLAMPED AND CUT. SPONTANEOUS INTACT PLACENTA WITH 3VC. NO LACERATIONS. MOTHER AND INFANT STABLE IN L_D #7 LABOR SUMMARY EDC: 07/06/2018 00:00 No. Babies in Womb: 1 Attempted: No Labor Anesthesia: Epidural LABOR INFORMATION Reason for Induction: Pre-Eclampsia Onset of Labor: 07/09/2018 08:02 Complete Dilatation: 07/09/2018 13:06 Cervical Ripening Agents: Cervidil Oxytocin: Induction Group B Beta Strep: Positive Antibiotics # of Doses: 2 Antibiotics Time of Last Dose: 1000 Name of Antibiotic Given: PCN Steroids Given: None Reason Steroids Not Administered: Not Applicable MEMBRANES Membranes Rupture Method: Artificial Rupture of Membranes: 07/09/2018 11:33 Length of Rupture (hr): 1.80 Amniotic Fluid Color: Clear Amniotic Fluid Amount: Moderate Amniotic Fluid Odor: Normal STAGES OF LABOR Stage 1 hr: 5 Stage 1 min: 4 Stage 2 hr: 0 Stage 2 min: 15 Stage 3 hr: 0 Stage 3 min: 5 Total Time in Labor hr: 5 Total Time in Labor min: 24 VAGINAL DELIVERY Episiotomy: None Laceration #1: None Laceration Extension #1: N/A Laceration Repair: No Sponge Count Correct: Yes Sharps Count Correct: Yes CSECTION DELIVERY Primary Indication: N/A Secondary Indication: N/A CSection Incidence: N/A Labor: N/A Elective: N/A CSection Incision: N/A BABY A INFORMATION Delivery Date/Time: 07/09/2018 13:21 Method of Delivery: Vaginal Born in Route : No : N/A Forceps: N/A Vacuum Extraction: N/A Shoulder Dystocia : No PRESENTATION/POSITION BABY A Presentation: Cephalic Cephalic Presentation: Vertex Vertex Position: Right Occipital Anterior Breech Presentation: N/A PLACENTA INFORMATION BABY A Placenta Delivery Time : 07/09/2018 13:26 Placenta Method of Delivery: Spontaneous Placenta Status: Delivered SCORES BABY A Heart Rate 1 min: >100 bpm Resp Effort 1 min: Good Cry Reflex Irritability 1 min: Cough or Sneeze or Pulls Away Muscle Tone 1 min: Active Motion Color 1 min: Blue/Pale Resuscitation Effort 1 min: Tactile Stimulation SCORE 1 MIN: 8 Heart Rate 5 min: >100 bpm Resp Effort 5 min: Good Cry Reflex Irritability 5 min: Cough or Sneeze or Pulls Away Muscle Tone 5 min: Active Motion Color 5 min: Body [place], Extremities Blue SCORE 5 MIN: 9 INFORMATION BABY A Gestational Age at Delivery: 40.3 Gestational Status: Full Term- 39- 40.6 Weeks Infant Outcome : Liveborn Condition : Stable Sex: Male IDENTIFICATION BABY A Infant Verification Date/Time: 07/09/2018 13:54 ID Band Number: [id number] Mother's Name Verified: Yes Infant RN Verifying : Derrell Brantley, RN, B. Baidy, RN WEIGHT/LENGTH BABY A Birthweight (gm): 4295 Infant Weight (lb): 9 Infant Weight (oz): 8 Length (in): 22.00 Length (cm): 55.88 CORD INFORMATION BABY A No. Cord Vessels: 3 Nuchal Cord : Around Neck x1, Loose Cord Blood Taken: Yes-For Storage (Mom's Blood type +) Infant Suction: None ASSESSMENT BABY A Infant Complications: Multiple Late Decels Physical Findings at Delivery: Molding of the Head Infant Respirations: Appears Normal Skin to Skin: Yes Skin to Skin Time (min): 60 User Experience Analyst/ALS Called : No Care By: Jose Banerjee RN Transferred To: Remains with Mother BABY B INFORMATION : N/A SIGNATURES Assignment: Ibis Brantley MD Signature: with User ID: [email or web address] : with User ID: [email or web address] : I was personally available for consultation and serving as supervising physician for the MLP.
[2018-07-09] MEDS ORDERED: LABETALOL HCL INJ 20 MG/4 ML DISP.SYRIN IV ONE ×2 (16:55→16:56)
[2018-07-09] MEDS ORDERED: DOCUSATE SODIUM 100 MG CAPSULE ONE (18:21)
[2018-07-09] MEDS ORDERED: FERROUS SULFATE 325 MG TABLET PO ONE (18:21)
[2018-07-09] MEDS: DOCUSATE SODIUM 100 MG CAPSULE PO SCH (18:24)
[2018-07-09] MEDS: FERROUS SULFATE 325 MG TABLET PO SCH (18:24)
[2018-07-09] MEDS: IBUPROFEN 800 MG TABLET PO SCH (18:53)
[2018-07-10] MEDS: IBUPROFEN 800 MG TABLET PO SCH ×4 (00:05→22:25)
[2018-07-10] MEDS: FAMOTIDINE 20 MG TABLET PO SCH ×3 (00:06→22:25)
[2018-07-10] MEDS: RINGERS SOLUTION,LACTATED 1,000 ML IV PRN (02:07)
[2018-07-10] MEDS: PENICILLIN G-K 5 MILLION UNIT VIAL IV SCH ×2 (07:47→19:43)
[2018-07-10] MEDS: ZOLPIDEM TARTRATE 5 MG TABLET PO SCH ×2 (07:48→22:25)
[2018-07-10 07:56] LABS: HEMATOCRIT 29.5 % (36.0-47.0); HEMOGLOBIN 9.5 g/dL (12.0-15.5); MEAN CORPUSCULAR HEMOGLOBIN 23.8 pg (27.0-33.4); MEAN CORPUSCULAR HGB CONC 32.3 g/dL (32.0-36.0); MEAN CORPUSCULAR VOLUME 74 fl (80-97); PLATELET COUNT 223 10^3/uL (150-450); RED BLOOD COUNT 4.01 10^6/uL (3.72-5.28); RED CELL DISTRIBUTION WIDTH 18.6 % (11.5-14.0); WHITE BLOOD COUNT 8.4 10^3/uL (4.0-10.5)
[2018-07-10] MEDS: FERROUS SULFATE 325 MG TABLET PO SCH ×2 (09:18→17:10)
[2018-07-10] MEDS: DOCUSATE SODIUM 100 MG CAPSULE PO SCH ×2 (09:18→17:11)
[2018-07-10] MEDS: SENNOSIDES/DOCUSATE 8.6-50 MG 1 EACH TABLET PO SCH (09:18)
[2018-07-10] MEDS: PRENATAL VITAMIN W DHA CAPSULE PO SCH (09:18)
--- NOTE | 2018-07-10 11:54 | PDOC PROGRESS REPORT ---
Subjective-OB Progress Note for:: 07/10/18 - PP Day #1, s/p IOL for GHTN, pt doing well, denies headache today. B+, Rubella Immune, breast feeding Physical Exam (OB) Vital Signs: Temp Pulse Resp BP Pulse Ox 98.5 F 81 16 148/91 H 99 07/10/18 07:07 07/10/18 07:07 07/10/18 07:07 07/10/18 07:07 07/10/18 07:07 Intake & Output 07/09/18 07/10/18 07/11/18 06:59 06:59 06:59 Intake Total 952 1730 600 Balance 952 1730 600 Weight 81.7 kg - General General Appearance: Appears well, Alert In distress: None - PIH/Pre-Eclampsia DTR's: 1 + Clonus: Negative Headache: Absent Epigastric Pain: No Visual Changes: No - Lochia Lochia Amount: Scant < 10 ml Lochia Color: Rubra/Red - Abdomen Description: Soft, Round Hernia Present: No Fundal Description: Firm, Midline Fundal Height: u/u - u/2 - Respiratory Respiratory Status: No respiratory distress Breath sounds: Clear - Cardiovascular Rhythm: Regular Heart Sounds: Normal auscultation - Abdominal Inspection: Normal Distension: No distension - Genitourinary Genitourinary Note: voiding - Extremities Upper extremity: Normal inspection Lower extremities: Normal inspection - Neurological Cognition: Normal Orientation: AAOx4 - Psychological Associated symptoms: Normal affect, Normal mood - Skin Skin Temperature: Warm Skin Moisture: Dry Objective-Diagnostic Laboratory: 07/10/18 07:36 07/10/18 07:36 WBC 8.4 RBC 4.01 Hgb 9.5 L Hct 29.5 L MCV 74 L MCH 23.8 L MCHC 32.3 RDW 18.6 H Plt Count 223 Assessment and Plan(PN) - Assessment and Plan (1) Anemia, Is this a current diagnosis for this admission?: Yes Plan: start iron supplements (2) Gestational hypertension Is this a current diagnosis for this admission?: Yes (3) Normal vaginal delivery Is this a current diagnosis for this admission?: Yes (4) Nuchal cord, delivered, current hospitalization Is this a current diagnosis for this admission?: Yes - Time Spent with Patient Time with patient: Less than 15 minutes Medications reviewed and adjusted accordingly: Yes - Disposition Anticipated Discharge: Home Within: within 48 hours
[2018-07-10] MEDS: HYDRALAZINE HCL INJ/PF 20 MG/1 ML SDV IV PRN (17:11)
[2018-07-11] MEDS: IBUPROFEN 800 MG TABLET PO SCH ×2 (08:07→15:15)
[2018-07-11] MEDS: HYDRALAZINE HCL INJ/PF 20 MG/1 ML SDV IV PRN (08:15)
--- NOTE | 2018-07-11 09:06 | PDOC PROGRESS REPORT ---
Subjective-OB Progress Note for:: 07/11/18 Subjective: Doing well, holding baby, trying to get baby to breast feed, no c/o, ating well , voiding, ambulating Physical Exam (OB) Vital Signs: Temp Pulse Resp BP Pulse Ox 98.9 F 78 16 164/94 H 99 07/11/18 07:57 07/11/18 07:57 07/11/18 07:57 07/11/18 07:57 07/11/18 07:57 Intake & Output 07/10/18 07/11/18 07/12/18 06:59 06:59 06:59 Intake Total 1730 1150 Balance 1730 1150 - PIH/Pre-Eclampsia DTR's: 2 + Clonus: Negative Headache: Absent Epigastric Pain: No Visual Changes: No - Lochia Lochia Amount: Scant < 10 ml Lochia Color: Rubra/Red - Abdomen Description: Tender, Soft, Round Hernia Present: No Fundal Description: Firm, Midline Fundal Height: u/u - u/2 Objective-Diagnostic Laboratory: 07/10/18 07:36 Assessment and Plan(PN) - Assessment and Plan (1) Anemia, Is this a current diagnosis for this admission?: Yes (2) Nuchal cord, delivered, current hospitalization Is this a current diagnosis for this admission?: Yes (3) Normal vaginal delivery Is this a current diagnosis for this admission?: Yes (4) Gestational hypertension Is this a current diagnosis for this admission?: Yes - Time Spent with Patient Time with patient: Less than 15 minutes Medications reviewed and adjusted accordingly: Yes - Disposition Anticipated Discharge: Home Within: within 24 hours
[2018-07-11] MEDS: FERROUS SULFATE 325 MG TABLET PO SCH (09:36)
[2018-07-11] MEDS: DOCUSATE SODIUM 100 MG CAPSULE PO SCH (09:36)
[2018-07-11] MEDS: PRENATAL VITAMIN W DHA CAPSULE PO SCH (09:38)
[2018-07-11] MEDS: SENNOSIDES/DOCUSATE 8.6-50 MG 1 EACH TABLET PO SCH (09:38)
[2018-07-11] MEDS: FAMOTIDINE 20 MG TABLET PO SCH (09:38)
[2018-07-11] MEDS ORDERED: NIFEDIPINE 30 MG TAB.ER.24 PO ONE (12:49)
--- NOTE | 2018-07-11 12:53 | PDOC PROGRESS REPORT ---
Subjective Progress Note for:: 07/11/18 Subjective:: Patient states that she is ready to go home; no headaches or vision changes. Patient is ambulating voiding without difficulty Reason For Visit: /INDUCTION Physical Exam - Physical Exam Vital Signs: Temp Pulse Resp BP Pulse Ox 98.9 F 102 H 17 151/99 H 98 07/11/18 07:57 07/11/18 09:27 07/11/18 09:27 07/11/18 09:27 07/11/18 09:27 Intake & Output 07/10/18 07/11/18 07/12/18 06:59 06:59 06:59 Intake Total 1730 1150 Balance 1730 1150 Result Laboratory Results: 07/10/18 07:36 Assessment & Plan - Diagnosis (1) Anemia, Is this a current diagnosis for this admission?: Yes (2) Gestational hypertension Is this a current diagnosis for this admission?: Yes (3) Normal vaginal delivery Is this a current diagnosis for this admission?: Yes (4) Nuchal cord, delivered, current hospitalization Is this a current diagnosis for this admission?: Yes - Plan Summary Plan Summary: Patient's blood pressure is currently extremely elevated. Patient is adamant about going home. I will start her on Procardia 30 mg XL. I foresee the patient being discharged at approximately 1500. Patient is agreeable to this plan. If the medication works well for her, I will write a prescription for home
--- NOTE | 2018-07-11 16:14 | PDOC PROGRESS REPORT ---
Subjective Progress Note for:: 07/11/18 Subjective:: Pt demanding to go home in spite of her elevated blood pressure. Patient denies headaches and vision changes Reason For Visit: /INDUCTION Physical Exam - Physical Exam Vital Signs: Temp Pulse Resp BP Pulse Ox 99.4 F 96 18 159/103 H 97 07/11/18 16:07 07/11/18 16:07 07/11/18 16:07 07/11/18 16:07 07/11/18 16:07 Intake & Output 07/10/18 07/11/18 07/12/18 06:59 06:59 06:59 Intake Total 1730 1150 Balance 1730 1150 Result Laboratory Results: 07/10/18 07:36 Assessment & Plan - Diagnosis (1) Anemia, Is this a current diagnosis for this admission?: Yes (2) Gestational hypertension Is this a current diagnosis for this admission?: Yes (3) Normal vaginal delivery Is this a current diagnosis for this admission?: Yes (4) Nuchal cord, delivered, current hospitalization Is this a current diagnosis for this admission?: Yes - Plan Summary Plan Summary: In spite of her elevated blood pressures. At 1300, the patient was given Procardia 30 mg orally with the plan to recheck her blood pressure at 1500. I spoke with the patient and she was agreeable to this plan. If the Procardia worked, I would send her home with a prescription. She did not allow the nurse to check her blood pressure at 3:00. It is now 1615 and her blood pressure is still very elevated. She states that she is leaving anyway. Therefore, I will give her prescription for labetalol 200 mg twice daily and have her follow-up in the office in 1 week for blood pressure check.
[2018-07-11 16:26] VITALS: BP 147/95
--- NOTE | 2018-08-09 14:43 | PDOC DISCHARGE SUMMARY ---
General - Admit/Disc Date/PCP Admission Date/Primary Care Provider: 07/08/18 21:45 ELGIN GANDHI MD Discharge Date: 07/11/18 - Discharge Diagnosis (1) Anemia, Is this a current diagnosis for this admission?: Yes (2) Gestational hypertension Is this a current diagnosis for this admission?: Yes (3) Normal vaginal delivery Is this a current diagnosis for this admission?: Yes (4) Nuchal cord, delivered, current hospitalization Is this a current diagnosis for this admission?: Yes - Additional Information Discharge Diet: Regular Discharge Activity: Balance Activity w/Rest, No tub bath Home Medications: Calcium Carbonate [Tums] 200 mg PO PRN PRN 07/09/18 Pnv No.95/Ferrous Fum/Folic AC [ Formula] 1 each PO DAILY 07/09/18 History of Present Illness History of Present Illness: ОЛЕГ HYDE is a 33 year old female Physical Exam - Physical Exam Vital Signs: Temp Pulse Resp BP Pulse Ox 99.4 F 96 18 147/95 H 97 07/11/18 16:24 07/11/18 16:24 07/11/18 16:24 07/11/18 16:24 07/11/18 16:24 General appearance: PRESENT: no acute distress Respiratory exam: PRESENT: clear to auscultation norman Cardiovascular exam: PRESENT: RRR GI/Abdominal exam: PRESENT: normal bowel sounds, soft Extremities exam: ABSENT: calf tenderness, clubbing, full ROM, joint swelling, pedal edema, tenderness, +1 edema, +2 edema, other Result Laboratory Results: 07/10/18 07:36 Plan Discharge Plan: Plan: 1. Discharge home today 2. BP still elevated--Rx for Labetalol 3. F/u in the office in 1 week Time Spent: Less than 30 Minutes
== END 2018-07-11 18:10 | disposition home or self-care (01) | DRG 807 ==
LOC: LR 21:45 → 2S 07-10 06:55
PROVIDERS: ADMIT Obstetrics & Gynecology; ATTEND Obstetrics & Gynecology
PROC: 4A1HXCZ Monitoring of Products of Conception, Cardiac Rate, External Approach (ICD-10-PCS; 2018-07-08)
PROC: 10E0XZZ Delivery of Products of Conception, External Approach (ICD-10-PCS; principal; 2018-07-09)
PROC: 10907ZC Drainage of Amniotic Fluid, Therapeutic from Products of Conception, Via Natural or Artificial Opening (ICD-10-PCS; 2018-07-09)
PROC: 3E0P7VZ Introduction of Hormone into Female Reproductive, Via Natural or Artificial Opening (ICD-10-PCS; 2018-07-09)
PROC: 3E033VJ Introduction of Other Hormone into Peripheral Vein, Percutaneous Approach (ICD-10-PCS; 2018-07-09)
PROC: 3E02340 Introduction of Influenza Vaccine into Muscle, Percutaneous Approach (ICD-10-PCS; 2018-07-11)
PROC: 3E0234Z Introduction of Serum, Toxoid and Vaccine into Muscle, Percutaneous Approach (ICD-10-PCS; 2018-07-11)
DX: O13.4 Gestational [pregnancy-induced] hypertension without significant proteinuria, complicating childbirth (principal); Z37.0 Single live birth; O99.824 Streptococcus B carrier state complicating childbirth; O69.81X0 Labor and delivery complicated by cord around neck, without compression, not applicable or unspecified; O90.81 Anemia of the puerperium; D64.9 Anemia, unspecified; Z23 Encounter for immunization; Z3A.40 40 weeks gestation of pregnancy
CPT/HCPCS: 36415; 80307; 81005; 85025; 85027; 86592; 86850; 86900; 86901; 90471; 90686; 90715; 94760; G0008; J0295; J0360; J2370; J2540; J2590; J3010; J3475; J3490

== ENCOUNTER → 2018-09-19 | Day surgery (SDC) | payer MEDICAID ==
[2018-09-11 09:35] LABS: APPEARANCE,URINE CLEAR; BILIRUBIN,URINE NEGATIVE (NEGATIVE); COLOR,URINE YELLOW; GLUCOSE, URINE NEGATIVE (NEGATIVE); KETONES,URINE NEGATIVE (NEGATIVE); LEUKOCYTE ESTERASE,URINE MODERATE (NEGATIVE); NITRITE,URINE NEGATIVE (NEGATIVE); PROTEIN,URINE 30 mg/dL (NEGATIVE); URINE SPECIFIC GRAVITY 1.023; UROBILINOGEN,URINE NEGATIVE mg/dL (<2.0)
[2018-09-11 09:37] LABS: HEMATOCRIT 37.1 % (36.0-47.0); HEMOGLOBIN 12.1 g/dL (12.0-15.5); MEAN CORPUSCULAR HEMOGLOBIN 25.3 pg (27.0-33.4); MEAN CORPUSCULAR HGB CONC 32.6 g/dL (32.0-36.0); MEAN CORPUSCULAR VOLUME 78 fl (80-97); PLATELET COUNT 286 10^3/uL (150-450); RED BLOOD COUNT 4.77 10^6/uL (3.72-5.28); RED CELL DISTRIBUTION WIDTH 21.5 % (11.5-14.0); WHITE BLOOD COUNT 5.3 10^3/uL (4.0-10.5)
[~2018-09-19] MED LIST: ALBUTEROL SULFATE 0.083% NEB 2.5 MG/3 ML AMPUL NEB ONE; FENTANYL CITRATE INJ/PF 100 MCG/2 ML AMPUL ONE; LACTATED RINGERS 1000 ML IV PRN; LIDOCAINE 0.5% INJ-PF (5 MG/ML) 50 ML SDV SUBCUT PRN; MIDAZOLAM 2 MG/2 ML INJ ONE; PROPOFOL INJ 200 MG/20 ML VIAL IV ONE; RINGERS SOLUTION,LACTATED 1,000 ML IV ONE; SCOPOLAMINE HYDROBROMIDE 1.5 MG PATCH.TD72 ONE
[2018-09-19 11:55] VITALS: BP 136/97
== END ==
LOC: OROUT 11:23
PROVIDERS: ATTEND Obstetrics & Gynecology Gynecology
DX: Z30.2 Encounter for sterilization (principal); Z53.8 Procedure and treatment not carried out for other reasons
CPT/HCPCS: 36415; 85027; 81005; 81025; 94640; J2250; J3010; J3490; J2704

== ENCOUNTER → 2019-04-28 | Outpatient (CLI) | payer MEDICAID ==
[2019-04-28 11:01] LABS: BACTERIA (WET MOUNT) 3+ BACTERIA SEEN; RBCS (WET MOUNT) RARE RBCS SEEN; T.VAGINALIS (WET MOUNT) NO TRICHOMONAS SEEN; WBCS (WET MOUNT) 3+ WBCS SEEN; YEAST (WET MOUNT) NO YEAST SEEN
[2019-04-28 12:31] LABS: CHLAM PCR NOT DETECTED (NOT DETECT)
== END ==
LOC: LAB 10:54
PROVIDERS: ATTEND Nurse Practitioner Family
DX: N89.8 Other specified noninflammatory disorders of vagina (principal); R30.0 Dysuria
CPT/HCPCS: 87086; 87210; 87491; 87591